=== PATIENT | female | born 1970 | race Hispanic/Latino ===

== ENCOUNTER 2017-03-28 21:17 | Emergency (ER) | payer MEDICAID ==
[2017-03-28 21:26] VITALS: BP 152/83
--- NOTE | 2017-03-28 22:59 | Cat Scan Report ---
FINAL REPORT PROCEDURE: CT HEAD/BRAIN WO CON TECHNIQUE: Computerized tomography of the head was performed without contrast material. HISTORY: ACUTE HEADACHE COMPARISON: No prior studies are available for comparison. FINDINGS: Skull and scalp: Normal. Paranasal sinuses: Mucosal thickening is noted involving left maxillary, left frontal and bilateral ethmoid sinuses. Mucosal thickening is also noted involving the right sphenoid sinus.. Ventricles and subarachnoid spaces: Normal. Cerebrum: No evidence of hemorrhage, acute infarction or mass . Cerebellum and brainstem: No evidence of hemorrhage, acute infarction or mass. Vasculature: Normal. Comments: None. IMPRESSION: No acute intracranial abnormality. Bilateral chronic sinusitis
== END 2017-03-29 02:45 | disposition left against medical advice (07) ==
LOC: ED 21:17
DX: H57.12 Ocular pain, left eye (principal); Z53.21 Procedure and treatment not carried out due to patient leaving prior to being seen by health care provider
CPT/HCPCS: 70450

== ENCOUNTER 2017-06-13 10:01 | Outpatient (CLI) | payer MEDICAID ==
--- NOTE | 2017-06-13 11:07 | Ultrasound Report ---
ULTRASOUND EXTREMITY NONVASCULAR LEFT INDICATION: Left knee pain. Evaluate for [place] cyst. COMPARISON: None similar. FINDINGS: Sonographic evaluation of the area of concern behind the left knee demonstrates no focal fluid collection or suspicious mass. CONCLUSION: No sonographic abnormality in the area of concern behind the left knee, as described. Please correlate. Thank you for the opportunity to participate in this patient's care.
--- NOTE | 2017-06-13 11:28 | XRay Report ---
LEFT KNEE RADIOGRAPHS INDICATION: Left knee pain. COMPARISON: 11/12/2015. FINDINGS: AP, lateral and oblique left knee radiographs demonstrate mild to moderate degenerative spurring throughout. Slight tibial spine degenerative prominence or spurring as well. Mild medial compartment narrowing. Moderate to large suprapatellar effusion suspected. CONCLUSION: Mild to moderate left knee osteoarthritic changes and suprapatellar effusion suspected, as described. Please correlate. Thank you for the opportunity to participate in this patient's care.
== END 2017-06-13 10:02 | disposition home or self-care (01) ==
LOC: US 10:01
PROVIDERS: ATTEND Internal Medicine
DX: M17.12 Unilateral primary osteoarthritis, left knee (principal); I10 Essential (primary) hypertension; E11.9 Type 2 diabetes mellitus without complications; J18.9 Pneumonia, unspecified organism

== ENCOUNTER 2020-08-15 14:09 | Emergency (ER) | payer MEDICAID ==
--- NOTE | 2020-08-15 14:23 | Event Note ---
ED Screening Note ED Screening Note: WAS SEEN TODAY AT [facility] FOR ORAL SURGERY LEFT [facility] HAD N/V CALLED 911 DM HTN OBESE This initial assessment/diagnostic orders/clinical plan/treatment(s) is/are subject to change based on patients health status, clinical progression and re- assessment by fellow clinical providers in the ED. Further treatment and workup at subsequent clinical providers discretion. Patient/guardian urged not to elope from the ED as their condition may be serious if not clinically assessed and managed. Initial orders include: RO ACS
[2020-08-15 14:49] LABS: Hematocrit 44.4 % (30.3-42.9); Mean Corpuscular HGB Conc 34 % (30-34); Mean Corpuscular Volume 90 fl (79-97); Platelet Count 160 K/mm3 (140-440); Red Blood Count 4.92 M/mm3 (3.65-5.03); Red Cell Distribution Width 13.4 % (13.2-15.2)
[2020-08-15 15:10] LABS: Alanine Aminotransferase 20 units/L (7-56); Albumin 4.1 g/dL (3.9-5); Blood Urea Nitrogen 12 mg/dL (7-17); Calcium 8.4 mg/dL (8.4-10.2); Hemolysis Index 6
[2020-08-15 15:14] LABS: Bilirubin,Urine NEG (Negative); Blood,Urine MOD (Negative); Color,Urine Yellow (Yellow); Mucus,Urine 2+ /HPF; Urobilinogen,Urine < 2.0 mg/dL (<2.0)
[2020-08-15 15:24] LABS: BUN/Creatinine Ratio 20
[2020-08-15 15:25] LABS: HCG Qualitative,Urine Negative (Negative)
[2020-08-15] MEDS ORDERED: ONDANSETRON 4 MG ODT TAB PO ONE (15:57)
[2020-08-15] MEDS ORDERED: ALUM-MAG HYDROXIDE-SIMETHICONE 200-200-20MG/5ML ORAL LIQD 30 ML PO ONE (15:57)
[2020-08-15] MEDS ORDERED: LIDOCAINE VISCOUS 2% 15 ML ORAL LIQD PO ONE (15:57)
[2020-08-15] MEDS ORDERED: FAMOTIDINE 20 MG TAB PO ONE (15:57)
[2020-08-15] MEDS ORDERED: DICYCLOMINE 20 MG TAB PO ONE (16:36)
--- NOTE | 2020-08-15 16:48 | XRay Report ---
ABDOMEN 3 VIEW(S) INDICATION: EPIGASTRIC PAIN. COMPARISON: None available. FINDINGS: Bowel gas pattern: No significant abnormality. Free air: None seen. Stones: None seen. Chest: No acute findings. Additional Findings: No additional significant findings. IMPRESSION: 1. No acute findings. Signer Name: Eren You MD Signed: 08/15/2020 4:44 PM Workstation Name: [id number]
--- NOTE | 2020-08-15 16:48 | Emergency Department Report ---
ED General Adult HPI - General Chief complaint: Abdominal Pain Stated complaint: ABD PAIN/NAUSEA Time Seen by Provider: 08/15/20 14:22 Source: patient Mode of arrival: Ambulatory Limitations: No Limitations - History of Present Illness Initial comments: 50-year-old female patient with history of hypertension, diabetes, cholecystectomy, and diverticulitis presents to the emergency department with complaints of diffuse abdominal pain, nausea, and vomiting starting last week and worsening over the last 3 days. Patient states the pain is worse along her left lower quadrant. She has been treated for diverticulitis on an outpatient basis on one prior occasion., She states that the pain was not this severe at the time of this diagnosis. She is up-to-date on her colonoscopies. No known sick contacts. No recent steroid or antibiotic use. No new foods or medications. She has been taking her medications as prescribed at home. She also endorses mild dysuria starting today. Denies fever, chest pain, palpitations, numbness, weakness, paresthesias, syncope, rectal bleeding, hematemesis, back pain. Denies all other complaints at this time. Severity scale (0 -10): 8 - Related Data Home Medications Medication Instructions Recorded Confirmed Last Taken ALPRAZolam [Xanax TAB] 1 tab PO PRN PRN 06/17/13 01/18/18 01/17/18 Metoprolol [Lopressor TAB] 1 tab PO BID 06/17/13 01/18/18 01/17/18 lisinopriL [Zestril TAB] 1 tab PO DAILY 06/17/13 01/18/18 01/17/18 Gabapentin 800 mg PO BID 09/23/14 01/18/18 01/15/18 Oxycodone HCl/Acetaminophen 1 tab PO PRN PRN 09/23/14 01/18/18 01/17/18 [Oxycodone-Acetaminophen 5-325] metFORMIN 1,000 mg PO DAILY 01/18/18 01/18/18 01/17/18 Previous Rx's Medication Instructions Recorded Last Taken Type HYDROcodone/APAP 5-325 [[place] 1 each PO Q6HR PRN #20 tablet 11/27/13 01/17/18 Rx 5-325 mg TAB] methOCARBAMOL [Robaxin TAB] 500 mg PO Q6H PRN #28 tablet 04/30/18 Unknown Rx predniSONE [Deltasone] 20 mg PO QDAY #7 tab 04/30/18 Unknown Rx Dicyclomine [Bentyl] 20 mg PO QID #20 tablet 08/15/20 Unknown Rx Ondansetron [Zofran Odt] 4 mg PO Q8HR #20 tab.rapdis 08/15/20 Unknown Rx Allergies Allergy/AdvReac Type Severity Reaction Status Date / Time Penicillins Allergy BLISTERS Verified 04/30/18 07:18 Sulfa (Sulfonamide Allergy Vomiting Verified 04/30/18 07:18 Antibiotics) Iodinated Contrast Media AdvReac Anaphylaxis Verified 04/30/18 07:18 [Iodinated Contrast Media - IV Dye] iv dye Allergy Hives Uncoded 06/17/13 23:19 ED Review of Systems ROS: Stated complaint: ABD PAIN/NAUSEA Other details as noted in HPI GENERAL: Negative for fever, chills, weight change, anorexia, fatigue. ENT: Negative for ear pain, difficulty hearing, sore throat, nasal congestion, epistaxis. CARDIOVASCULAR: Negative for chest pain, palpitations, lower extremity swelling. PULMONARY: Negative for cough, dyspnea, wheezing, orthopnea, cyanosis. GASTROINTESTINAL: Positive for abdominal pain, nausea, vomiting, diarrhea. MUSCULOSKELETAL: Negative for joint pain, joint swelling, myalgias, back pain, neck pain. NEUROLOGICAL: Negative for headache, seizure, syncope, paresthesias, weakness. INTEGUMENTARY: Negative for erythema, rash, diaphoresis, laceration, ecchymosis. HEMATOLOGICAL: Negative for hemoptysis, hematemesis, hematochezia, hematuria. PSYCHIATRIC: Negative for hallucinations, suicidal ideation, homicidal ideation, anxiety, depression. ED Past Medical Hx - Past Medical History Previous Medical History?: Yes Hx Hypertension: Yes (on metoprolol and lisinopril) Hx Diabetes: Yes (DIET CONTROLLED) Hx Psychiatric Treatment: Yes (anxiety) Hx Asthma: No Hx COPD: No - Surgical History Past Surgical History?: Yes Hx Cholecystectomy: Yes Additional Surgical History: hernia repair csection - Social History Smoking Status: Never Smoker Substance Use Type: None - Medications Home Medications: Home Medications Medication Instructions Recorded Confirmed Last Taken Type ALPRAZolam [Xanax TAB] 1 tab PO PRN PRN 06/17/13 01/18/18 01/17/18 History Metoprolol [Lopressor TAB] 1 tab PO BID 06/17/13 01/18/18 01/17/18 History lisinopriL [Zestril TAB] 1 tab PO DAILY 06/17/13 01/18/18 01/17/18 History HYDROcodone/APAP 5-325 [[place] 1 each PO Q6HR PRN #20 tablet 11/27/13 01/18/18 01/17/18 Rx 5-325 mg TAB] Gabapentin 800 mg PO BID 09/23/14 01/18/18 01/15/18 History Oxycodone HCl/Acetaminophen 1 tab PO PRN PRN 09/23/14 01/18/18 01/17/18 History [Oxycodone-Acetaminophen 5-325] metFORMIN 1,000 mg PO DAILY 01/18/18 01/18/18 01/17/18 History methOCARBAMOL [Robaxin TAB] 500 mg PO Q6H PRN #28 tablet 04/30/18 Unknown Rx predniSONE [Deltasone] 20 mg PO QDAY #7 tab 04/30/18 Unknown Rx Dicyclomine [Bentyl] 20 mg PO QID #20 tablet 08/15/20 Unknown Rx Ondansetron [Zofran Odt] 4 mg PO Q8HR #20 tab.rapdis 08/15/20 Unknown Rx ED Physical Exam - General Limitations: No Limitations - Other Other exam information: General: Awake and alert. No acute distress. Morbidly obese. Head: Atraumatic, normocephalic. Eyes: EOMI. Pupils are equal and round. Normal sclera and conjunctiva. ENT: Oral mucosa is moist. Normal pharyngeal exam. Neck: Supple. No lymphadenopathy. Pulmonary: No respiratory distress. Clear to auscultation bilaterally. Cardiac: Regular rate and rhythm. Pulses are palpable and equal bilaterally. No lower extremity cyanosis or edema. Skin: Warm and dry. No rashes. Abdomen: Soft, non-protuberant. Tenderness to palpation along the left lower quadrant without guarding, rigidity, or rebound. Bowel sounds are normal. No organomegaly or masses noted. Back: Normal alignment. No CVA tenderness. Extremities: Symmetrical. Full range of motion intact. Neurological: Alert and oriented, appropriately interactive, no focal deficits. Psych: Cooperative. Appropriate mood and affect. Speech is evenly metered. Thoughts are logically construed. ED Course Vital Signs 08/15/20 08/15/20 08/15/20 14:28 15:57 17:13 Temperature 98.2 F Pulse Rate 72 82 77 Respiratory 18 18 18 Rate Blood Pressure 135/72 135/78 154/72 [Left] O2 Sat by Pulse 95 98 96 Oximetry 08/15/20 18:47 Temperature Pulse Rate 84 Respiratory 18 Rate Blood Pressure 163/93 [Left] O2 Sat by Pulse 98 Oximetry ED Medical Decision Making - Lab Data Result diagrams: 08/15/20 14:35 08/15/20 14:35 - EKG Data EKG shows normal sinus rhythm with a ventricular rate of 73 bpm. Normal axis. Normal ID interval. Normal QT interval. Good R wave progression. No ST segment changes. Over read by attending emergency physician, who agrees with this interpretation. 08/15/20 17:24 - Radiology Data Patient: JAY DURAND MR#: [id number] : 1970 Acct:[id number] Age/Sex: 50 / F ADM Date: 08/15/20 Loc: ED Attending Dr: Ordering Physician: MICHELET BENNETT Date of Service: 08/15/20 Procedure(s): CT abdomen pelvis wo con Accession Number(s): [id number] cc: MICHELET BENNETT CT ABDOMEN AND PELVIS WITHOUT CONTRAST INDICATION / CLINICAL INFORMATION: Unspecified abdominal pain, nausea with vomiting, history of diverticulitis. TECHNIQUE: Axial CT images were obtained through the abdomen and pelvis without IV contrast. All CT scans at this location are performed using CT dose reduction for ALARA by means of automated exposure control. COMPARISON: Acute abdominal series performed earlier today. FINDINGS: LOWER CHEST: No significant abnormality. LIVER: There is generalized steatosis without other significant abnormalities. GALLBLADDER: Prior cholecystectomy. A migrated cholecystectomy clip is seen posteriorly along the right hepatic lobe on image 79 of series 2. No surrounding inflammation is identified. BILE DUCTS: No significant abnormality. PANCREAS: No significant abnormality. SPLEEN: No significant abnormality. ADRENALS: No significant abnormality. RIGHT KIDNEY / URETER: No significant abnormality. LEFT KIDNEY / URETER: No significant abnormality. STOMACH / SMALL BOWEL: No significant abnormality. COLON: No significant abnormality. APPENDIX: No significant abnormality. PERITONEUM: No free fluid. No free air. No fluid collection. LYMPH NODES: No significant adenopathy. AORTA / ARTERIES: No significant abnormality. IVC / VEINS: No significant abnormality. URINARY BLADDER: No significant abnormality. REPRODUCTIVE ORGANS: A left ovarian cyst measures 6.0 x 4.0 cm on image 161 of series 2. No other significant abnormality. ADDITIONAL FINDINGS: None. SKELETAL SYSTEM: No acute abnormality. There are moderate degenerative changes throughout the spine. IMPRESSION: 1. No acute abnormality to explain the patient's pain. 2. Left ovarian cyst measuring 6.0 x 4.0 cm. A nonemergent pelvic ultrasound is recommended for further evaluation. 3. Additional findings as above. Signer Name: Eren You MD Signed: 08/15/2020 5:09 PM Workstation Name: [id number] Transcribed By: [place] Dictated By: Eren You MD Electronically Authenticated By: Eren You MD Signed Date/Time: 08/15/201708 DD/ 03 TD/TT: Print Cancel - Medical Decision Making Differential diagnosis including but not limited to: appendicitis, bowel obstruction, bowel perforation, mesenteric ischemia, diverticulitis, peptic ulcer disease, pancreatitis, pyelonephritis, urinary tract infection, abdominal aortic aneurysm/dissection, DKA/HHS, foodborne illness, viral syndrome On re-evaluation, patient is stable and symptoms have improved. No further vomiting in the emergency department. She is tolerating p.o. fluids without difficulty. EKG without acute injury pattern. Initial and repeat troponin within normal limits. Labs significant for an elevated white blood cell count of 16,000; lactic acid is within normal limits. Leukocytosis is most likely secondary to patient's daily glucocorticoid use. Urinalysis shows RBC's/WBC's in the setting of negative nitrite; sent for culture prior to initiating antibiotic therapy, as patient is already reporting GI discomfort. CT of the abdomen/pelvis obtained without contrast due to patient's allergy. Findings significant for left ovarian cyst. No clinical evidence to suggest DKA. Pain is appropriately proportional to exam findings with low suspicion for mesenteric ischemia. Clinical presentation is most suggestive of viral syndrome. Patient will be discharged home with appropriate analgesics and anti-emetics. She has been provided with a copy of all laboratory and imaging results, and instructed to follow-up with her primary care provider next week. Patient expressed understanding and is agreeable to plan of care. Disease transmission precautions discussed. Strict return precautions provided. Repeat exam is unremarkable and benign. History, exam, diagnostic testing, and current condition do not suggest worrisome pathology to warrant further testing, continued ED treatment, admission, or surgical evaluation at this point. Given the low probability of a significant medical illness, it would be more likely to result in harm than benefit to perform further testing at this stage. Discussed findings, presumptive diagnosis, need for follow-up and specific signs/symptoms that should prompt immediate return to the emergency department. Instructions were explained in detail to the patient in addition to giving written discharge information. Patient expressed understanding and was given the opportunity to ask questions, all of which were satisfactorily answered prior to discharge home. Critical care attestation.: If time is entered above; I have spent that time in minutes in the direct care of this critically ill patient, excluding procedure time. ED Disposition Clinical Impression: Nausea vomiting and diarrhea Disposition: TO HOME OR SELFCARE Is pt being admited?: No Does the pt Need Aspirin: No Condition: Stable Instructions: Nausea and Vomiting, Adult, Diarrhea, Adult, [id number], Abdominal Pain (ED) Additional Instructions: Take Bentyl as directed for abdominal discomfort. Take Zofran as directed for nausea/vomiting. Rest. Drink plenty of fluids. Wash hands frequently to prevent disease transmission. Do not share food or drinks with others. Gradually advance diet slowly as tolerated. Follow-up with your primary care provider next week. Call tomorrow to schedule an appointment. Bring a copy of today's results with you to your follow-up appointment. Return to the emergency department immediately for new or worsening symptoms. Specifically, return to the emergency department immediately for increased pain, worsening vomiting/diarrhea, mental status changes, difficulty controlling your blood glucose level, fever, rash, chest pain, shortness of breath, black/bloody stools, or any other concerns. Prescriptions: Dicyclomine [Bentyl] 20 mg PO QID #20 tablet Ondansetron [Zofran Odt] 4 mg PO Q8HR #20 tab.rapdis Referrals: JOHN LEON MD [Primary Care Provider] - 3-5 Days Time of Disposition: 18:47
[2020-08-15 16:58] LABS: Total Cells Counted 100
[2020-08-15 17:01] LABS: Platelet Estimate Consistent w Auto; RBC Morphology Normal
--- NOTE | 2020-08-15 17:14 | Cat Scan Report ---
CT ABDOMEN AND PELVIS WITHOUT CONTRAST INDICATION / CLINICAL INFORMATION: Unspecified abdominal pain, nausea with vomiting, history of diverticulitis. TECHNIQUE: Axial CT images were obtained through the abdomen and pelvis without IV contrast. All CT scans at [facility] location are performed using CT dose reduction for ALARA by means of automated exposure control. COMPARISON: Acute abdominal series performed earlier today. FINDINGS: LOWER CHEST: No significant abnormality. LIVER: There is generalized steatosis without other significant abnormalities. GALLBLADDER: Prior cholecystectomy. A migrated cholecystectomy clip is seen posteriorly along the rig ht hepatic lobe on image 79 of series 2. No surrounding inflammation is identified. BILE DUCTS: No significant abnormality. PANCREAS: No significant abnormality. SPLEEN: No significant abnormality. ADRENALS: No significant abnormality. RIGHT KIDNEY / URETER: No significant abnormality. LEFT KIDNEY / URETER: No significant abnormality. STOMACH / SMALL BOWEL: No significant abnormality. COLON: No significant abnormality. APPENDIX: No significant abnormality. PERITONEUM: No free fluid. No free air. No fluid collection. LYMPH NODES: No significant adenopathy. AORTA / ARTERIES: No significant abnormality. IVC / VEINS: No significant abnormality. URINARY BLADDER: No significant abnormality. REPRODUCTIVE ORGANS: A left ovarian cyst measures 6.0 x 4.0 cm on image 161 of series 2. No other sig nificant abnormality. ADDITIONAL FINDINGS: None. SKELETAL SYSTEM: No acute abnormality. There are moderate degenerative changes throughout the spine. IMPRESSION: 1. No acute abnormality to explain the patient's pain. 2. Left ovarian cyst measuring 6.0 x 4.0 cm. A nonemergent pelvic ultrasound is recommended for [facility] evaluation. 3. Additional findings as above. Signer Name: Eren You MD Signed: 08/15/2020 5:09 PM Workstation Name: [id number]
[2020-08-15 18:48] VITALS: BP 163/93
== END 2020-08-15 18:56 | disposition home or self-care (01) ==
LOC: ED 14:09
DX: R11.2 Nausea with vomiting, unspecified (principal); R19.7 Diarrhea, unspecified; I10 Essential (primary) hypertension; E11.9 Type 2 diabetes mellitus without complications; F41.9 Anxiety disorder, unspecified; Z90.49 Acquired absence of other specified parts of digestive tract; Z98.890 Other specified postprocedural states; Z79.84 Long term (current) use of oral hypoglycemic drugs; Z79.899 Other long term (current) drug therapy; Z88.0 Allergy status to penicillin; Z88.2 Allergy status to sulfonamides; Z88.8 Allergy status to other drugs, medicaments and biological substances
CPT/HCPCS: 36415; 74022; 74176; 80053; 81001; 81025; 82140; 83690; 84484; 85007; 85025; 87040; 87086; 93005; Q0162

== ENCOUNTER 2020-10-18 21:43 | Emergency (ER) | payer MEDICAID | END 2020-10-19 | disposition left against medical advice (07) | LOC: ED 21:43 | DX: M25.562 Pain in left knee (principal); R06.02 Shortness of breath; Z53.21 Procedure and treatment not carried out due to patient leaving prior to being seen by health care provider ==

== ENCOUNTER 2020-10-19 09:58 | Emergency (ER) | payer MEDICAID ==
[2020-10-19 10:10] VITALS: BP 159/90
--- NOTE | 2020-10-19 10:43 | XRay Report ---
LEFT KNEE 4 VIEW(S) INDICATION / CLINICAL INFORMATION: left knee pain and swelling COMPARISON: 06/13/2017 FINDINGS: BONES / JOINT(S): No acute fracture or subluxation. Moderate tract compartment arthrosis similar to p rior exam. SOFT TISSUES: Persistent moderate suprapatellar knee joint effusion. ADDITIONAL FINDINGS: None. Signer Name: Praveen Pulliam MD Signed: 10/19/2020 10:39 AM Workstation Name: [id number]
--- NOTE | 2020-10-19 12:47 | Emergency Department Report ---
ED Extremity Problem HPI - General Chief complaint: Extremity Problem,Nontraumatic Stated complaint: LT KNEE/BREATHING PROBLEM Time Seen by Provider: 10/19/20 12:41 Source: patient Mode of arrival: Ambulatory Limitations: No Limitations - History of Present Illness Initial comments: Patient is a 50-year-old female presents emergency room complaints of left-sided knee pain that began a few days ago. She states that she also has swelling present to her left knee. She states that she has had this pain before and was diagnosed with a Del Rosario's cyst. She denies any fall or injury. She denies any swelling down the leg or calf pain. She is ambulatory. She denies any recent travel, recent surgery, history of DVT/PE run patient denies any shortness of breath, she states that just when the pain in her knee hurts and makes her breathing heavy but otherwise has no shortness of breath. She denies any chest pain or pleuritic chest pain. She has a past medical history of hypertension and diabetes. She has an allergy to penicillin, sulfa, IV dye. Last menstrual cycle 09/17/20. - Related Data Home Medications Medication Instructions Recorded Confirmed Last Taken ALPRAZolam [Xanax TAB] 1 tab PO PRN PRN 06/17/13 01/18/18 01/17/18 Metoprolol [Lopressor TAB] 1 tab PO BID 06/17/13 01/18/18 01/17/18 lisinopriL [Zestril TAB] 1 tab PO DAILY 06/17/13 01/18/18 01/17/18 Gabapentin 800 mg PO BID 09/23/14 01/18/18 01/15/18 Oxycodone HCl/Acetaminophen 1 tab PO PRN PRN 09/23/14 01/18/18 01/17/18 [Oxycodone-Acetaminophen 5-325] metFORMIN 1,000 mg PO DAILY 01/18/18 01/18/18 01/17/18 Previous Rx's Medication Instructions Recorded Last Taken Type HYDROcodone/APAP 5-325 [[place] 1 each PO Q6HR PRN #20 tablet 11/27/13 01/17/18 Rx 5-325 mg TAB] methOCARBAMOL [Robaxin TAB] 500 mg PO Q6H PRN #28 tablet 04/30/18 Unknown Rx predniSONE [Deltasone] 20 mg PO QDAY #7 tab 04/30/18 Unknown Rx Dicyclomine [Bentyl] 20 mg PO QID #20 tablet 08/15/20 Unknown Rx Ondansetron [Zofran Odt] 4 mg PO Q8HR #20 tab.rapdis 08/15/20 Unknown Rx Diclofenac EC [Voltaren] 25 mg PO Q8HR #20 tablet 10/19/20 Unknown Rx Diclofenac Sodium [Voltaren 1 applicatio TP BID #20 gel..gram. 10/19/20 Unknown Rx Arthritis Pain] Allergies Allergy/AdvReac Type Severity Reaction Status Date / Time Penicillins Allergy BLISTERS Verified 04/30/18 07:18 Sulfa (Sulfonamide Allergy Vomiting Verified 04/30/18 07:18 Antibiotics) Iodinated Contrast Media AdvReac Anaphylaxis Verified 04/30/18 07:18 [Iodinated Contrast Media - IV Dye] iv dye Allergy Hives Uncoded 06/17/13 23:19 ED Review of Systems ROS: Stated complaint: LT KNEE/BREATHING PROBLEM Other details as noted in HPI Comment: All other systems reviewed and negative ED Past Medical Hx - Past Medical History Previous Medical History?: Yes Hx Hypertension: Yes (on metoprolol and lisinopril) Hx Diabetes: Yes (DIET CONTROLLED) Hx Psychiatric Treatment: Yes (anxiety) Hx Asthma: No Hx COPD: No - Surgical History Past Surgical History?: Yes Hx Cholecystectomy: Yes Additional Surgical History: hernia repair csection - Social History Smoking Status: Never Smoker Substance Use Type: None - Medications Home Medications: Home Medications Medication Instructions Recorded Confirmed Last Taken Type ALPRAZolam [Xanax TAB] 1 tab PO PRN PRN 06/17/13 01/18/18 01/17/18 History Metoprolol [Lopressor TAB] 1 tab PO BID 06/17/13 01/18/18 01/17/18 History lisinopriL [Zestril TAB] 1 tab PO DAILY 06/17/13 01/18/18 01/17/18 History HYDROcodone/APAP 5-325 [[place] 1 each PO Q6HR PRN #20 tablet 11/27/13 01/18/18 01/17/18 Rx 5-325 mg TAB] Gabapentin 800 mg PO BID 09/23/14 01/18/18 01/15/18 History Oxycodone HCl/Acetaminophen 1 tab PO PRN PRN 09/23/14 01/18/18 01/17/18 History [Oxycodone-Acetaminophen 5-325] metFORMIN 1,000 mg PO DAILY 01/18/18 01/18/18 01/17/18 History methOCARBAMOL [Robaxin TAB] 500 mg PO Q6H PRN #28 tablet 04/30/18 Unknown Rx predniSONE [Deltasone] 20 mg PO QDAY #7 tab 04/30/18 Unknown Rx Dicyclomine [Bentyl] 20 mg PO QID #20 tablet 08/15/20 Unknown Rx Ondansetron [Zofran Odt] 4 mg PO Q8HR #20 tab.rapdis 08/15/20 Unknown Rx Diclofenac EC [Voltaren] 25 mg PO Q8HR #20 tablet 10/19/20 Unknown Rx Diclofenac Sodium [Voltaren 1 applicatio TP BID #20 gel..gram. 10/19/20 Unknown Rx Arthritis Pain] ED Physical Exam - General Limitations: No Limitations General appearance: alert, in no apparent distress - Head Head exam: Present: atraumatic, normocephalic - Eye Eye exam: Present: normal appearance - ENT ENT exam: Present: mucous membranes moist - Respiratory Respiratory exam: Present: normal lung sounds bilaterally. Absent: respiratory distress, wheezes, rales, rhonchi, stridor, chest wall tenderness, accessory muscle use, decreased breath sounds, prolonged expiratory - Cardiovascular Cardiovascular Exam: Present: regular rate, normal rhythm, normal heart sounds. Absent: systolic murmur, diastolic murmur, rubs, gallop - Extremities Exam Extremities exam: Present: other (mild ttp to the left anterior knee and left posterior knee, mild edema, no increased warmth, no erythema, no skin changes, no pedal edema down the leg, no calf ttp, neurovascularly intact with strong distal pulse) - Neurological Exam Neurological exam: Present: alert, oriented X3 - Psychiatric Psychiatric exam: Present: normal affect, normal mood - Skin Skin exam: Present: warm, dry, intact ED Course Vital Signs 10/19/20 10:04 Temperature 98.2 F Pulse Rate 59 L Respiratory 18 Rate Blood Pressure 159/90 O2 Sat by Pulse 97 Oximetry ED Medical Decision Making - Radiology Data Radiology results: report reviewed Ordering Physician: MICHELET QUINTANA Date of Service: 10/19/20 Procedure(s): XR knee 3V LT Accession Number(s): [id number] cc: MICHELET QUINTANA Fluoro Time In Minutes: LEFT KNEE 4 VIEW(S) INDICATION / CLINICAL INFORMATION: left knee pain and swelling COMPARISON: 06/13/2017 FINDINGS: BONES / JOINT(S): No acute fracture or subluxation. Moderate tract compartment arthrosis similar to prior exam. SOFT TISSUES: Persistent moderate suprapatellar knee joint effusion. ADDITIONAL FINDINGS: None. Signer Name: Praveen Hebert MD Signed: 10/19/2020 10:39 AM Workstation Name: [id number] Transcribed By: Dictated By: PRAVEEN HEBERT Electronically Authenticated By: PRAVEEN HEBERT Signed Date/Time: 10/19/20 1039 DD/ 1038 TD/TT: - Medical Decision Making Patient is a 50-year-old female presents emergency room complaints of left-sided knee pain that began a few days ago. She states that she also has swelling present to her left knee. She states that she has had this pain before and was diagnosed with a Del Rosario's cyst. She denies any fall or injury. She denies any swelling down the leg or calf pain. She is ambulatory. She denies any recent travel, recent surgery, history of DVT/PE run patient denies any shortness of breath, she states that just when the pain in her knee hurts and makes her breathing heavy but otherwise has no shortness of breath. She denies any chest pain or pleuritic chest pain. She has a past medical history of hypertension and diabetes. She has an allergy to penicillin, sulfa, IV dye. Last menstrual cycle 09/17/20. On exam:mild ttp to the left anterior knee and left posterior knee, mild edema, no increased warmth, no erythema, no skin changes, no pedal edema down the leg, no calf ttp, neurovascularly intact with strong distal pulse. X-ray left knee: BONES / JOINT(S): No acute fracture or subluxation. Moderate tract compartment arthrosis similar to prior exam. SOFT TISSUES: Persistent moderate suprapatellar knee joint effusion. ADDITIONAL FINDINGS: None. Patient does not have any clinical signs of DVT. I offered patient ultrasound of the lower extremity and she politely declined, she states she is going to follow-up with her primary care doctor and orthopedic doctor, she states that she will return for any new or worsening symptoms. advised pt please take medication as prescribed. Follow-up with orthopedic doctor. Follow-up with primary care doctor. Return to emergency room immediately for any new or worsening symptoms including but not limited to worsening pain, swelling of the leg, calf pain, etc. Critical care attestation.: If time is entered above; I have spent that time in minutes in the direct care of this critically ill patient, excluding procedure time. ED Disposition Clinical Impression: Arthritis of left knee, Effusion, left knee Left knee pain Qualifiers: Chronicity: acute Qualified Code(s): M25.562 - Pain in left knee Disposition: - TO HOME OR SELFCARE Is pt being admited?: No Does the pt Need Aspirin: No Condition: Stable Instructions: Knee Effusion, [id number], Osteoarthritis Additional Instructions: Please take medication as prescribed. Follow-up with orthopedic doctor. Follow- up with primary care doctor. Return to emergency room immediately for any new or worsening symptoms including but not limited to worsening pain, swelling of the leg, calf pain, etc. Prescriptions: Diclofenac EC [Voltaren] 25 mg PO Q8HR #20 tablet Diclofenac Sodium [Voltaren Arthritis Pain] 1 applicatio TP BID #20 gel..gram. Referrals: JOHN LEON MD [Primary Care Provider] - 2-3 Days ALANA SÁNCHEZ MD [Staff Physician] - 2-3 Days [facility] [Provider Group] - 2-3 Days Time of Disposition: 12:45 Print Language: ARMENIAN
== END 2020-10-19 13:02 | disposition home or self-care (01) ==
LOC: ED 09:58
DX: M17.12 Unilateral primary osteoarthritis, left knee (principal); M25.462 Effusion, left knee; I10 Essential (primary) hypertension; E11.9 Type 2 diabetes mellitus without complications; F41.9 Anxiety disorder, unspecified; Z79.899 Other long term (current) drug therapy; Z88.0 Allergy status to penicillin; Z88.2 Allergy status to sulfonamides; Z98.890 Other specified postprocedural states; Z90.49 Acquired absence of other specified parts of digestive tract
CPT/HCPCS: 99283